=== PATIENT | female | born 1960 | race Caucasian/White ===

== ENCOUNTER → 2018-04-18 | Outpatient (CLI) | payer OTHER ==
--- NOTE | 2018-04-20 13:15 | CT ---
EXAMINATION TYPE: CT abdomen pelvis w con DATE OF EXAM: 04/18/2018 HISTORY: Left lower abdominal pain, distention and constipation. CT DLP: 1112mGycm Automated Exposure Control for Dose Reduction was Utilized. CONTRAST: CT scan of the abdomen and pelvis is performed with IV Contrast, patient injected with 100ml mL of Is ovue M300. COMPARISON: None. FINDINGS: LUNG BASES: Linear pleural parenchymal scarring is seen at the right lung base.. LIVER/GB: No significant abnormality is appreciated within the liver. On coronal imaging layering wit hin the gallbladder fundus on series 5 image 26 there is increased density that may represent artifac t as on axial images there may be volume averaging with the adjacent colon, however this could also r epresent a small gallbladder polyp or biliary sludge. Ultrasound is recommended for further character ization. This is also seen on axial series 3 image 36 and series 7 image 36 laterally. PANCREAS: No significant abnormality is seen. No ductal dilatation. SPLEEN: No significant abnormality is seen. No splenomegaly in the craniocaudal dimension. ADRENALS: No significant abnormality is seen. No nodularity or thickening. KIDNEYS: Kidneys enhance and excrete symmetrically without hydronephrosis or appreciable renal mass. BOWEL: Bowel is nondilated. No focal bowel wall thickening is appreciated. Appendix is air-filled and within normal limits. Small bowel fold pattern is unremarkable. No pericolonic fat stranding. No kennedy dence of focal stricture. No significant diverticular disease. UTERUS/ADNEXA: No gross abnormality seen. LYMPH NODES: No greater than 1cm abdominal or pelvic lymph nodes are appreciated. OSSEOUS STRUCTURES: There is grade 2 anterolisthesis of L4 on L5 secondary to bilateral pars interart icularis defects with resultant disc uncovering. Within the remainder the visualized lumbosacral spin e there are mild multilevel degenerative changes in a mild levoscoliotic curvature. Mild femoral acet abular arthropathy is also seen. IMPRESSION: 1. No evidence of bowel obstruction or active inflammation within the colon to correspond to the sanjay ent's focal left lower quadrant pain. 2. Biliary sludge versus small fundal gallbladder polyp or possible artifact. Targeted gallbladder/ri ght upper quadrant ultrasound is recommended for further evaluation. 3. Grade 2 anterolisthesis of L4 on L5 secondary to bilateral pars interarticularis defects.
== END | disposition home or self-care (01) ==
LOC: RADCTMAIN 17:16
PROVIDERS: ATTEND Family Medicine
DX: R10.32 Left lower quadrant pain (principal)
CPT/HCPCS: 74177; Q9967

== ENCOUNTER → 2018-05-13 | Outpatient (CLI) | payer OTHER ==
--- NOTE | 2018-05-13 08:20 | US ---
EXAMINATION TYPE: US gallbladder DATE OF EXAM: 05/13/2018 COMPARISON: CT 04/18/2018 CLINICAL HISTORY: 58-year-old female K82.4 Cholesterolosis Of Gallbladder. Follow up from recent CT TECHNIQUE: Multiple sonographic images of the right upper quadrant are obtained. FINDINGS: EXAM MEASUREMENTS: Liver Length: 16.6 cm Gallbladder Wall: 0.1 cm CBD: 0.5 cm Right Kidney: 9.9 x 4.2 x 5.0 cm Pancreas: visualized portions wnl, tail limited by overlying midline bowel gas Liver: Upper limits of normal in size but with homogeneous appearance and no focal lesion. Gallbladder: No abnormal distention, wall thickening, pericholecystic fluid, or shadowing calculi. Evidence for sonographic Alvarez's sign: no CBD: wnl Right Kidney: wnl IMPRESSION: Right upper quadrant ultrasound without any specific abnormality seen. Particular attention to the fu ndus of the gallbladder.
== END | disposition home or self-care (01) ==
LOC: RADUSWWP 06:54
PROVIDERS: ATTEND Family Medicine
DX: K82.4 Cholesterolosis of gallbladder (principal)
CPT/HCPCS: 76705

== ENCOUNTER → 2018-06-23 | Outpatient (CLI) | payer OTHER ==
--- NOTE | 2018-06-23 10:30 | NM ---
EXAMINATION TYPE: NM hepatobiliary w EF DATE OF EXAM: 06/23/2018 COMPARISON: NONE HISTORY: Pain TECHNIQUE: After the intravenous administration of 5.12 mCi Tc 99m Mebrofenin hepatobiliary scintigra phy is performed. Immediate images post injection. FINDINGS: There is satisfactory initial accumulation of tracer by the liver. The gallbladder is visualized wit hin 12 minutes. The small bowel activity is noted within 60 minutes. At one hour 8 ounces of oral e nsure plus is given to mimic CCK and gallbladder ejection fraction is calculated at 84 %. IMPRESSION: 1. Increased gallbladder ejection fraction which may reflect hypercontractile state.
== END | disposition home or self-care (01) ==
LOC: RADNMMAIN 07:05
PROVIDERS: ATTEND Surgery Plastic and Reconstructive Surgery
DX: K81.9 Cholecystitis, unspecified (principal); Z88.5 Allergy status to narcotic agent; Z88.6 Allergy status to analgesic agent
CPT/HCPCS: 78226; A9537

== ENCOUNTER → 2018-09-22 | Outpatient (CLI) | payer OTHER ==
--- NOTE | 2018-09-23 06:45 | US ---
EXAMINATION TYPE: US pelvis complete transvag DATE OF EXAM: 09/22/2018 COMPARISON: CT abdomen and pelvis April 18, 2018 CLINICAL HISTORY: R10.2 Pelvic Pain. TECHNIQUE: Transvaginal (TV) and Transabdominal (TA) . Transabdominal sonographic images of the pel vis were acquired. Transvaginal sonographic images were medically necessary to better assess the fol lowing anatomy: ovaries Date of LMP: postmenopausal, just had a shot of testosterone as levels are low. EXAM MEASUREMENTS: Uterus: 5.3 x 1.8 x 3.5 cm Endometrial Stripe: 0.6 cm Right Ovary: 1.8 x 1.7 x 1.2 cm Left Ovary: not identified cm 1. Uterus: Anteverted wnl 2. Endometrium: measures 0.6 cm 3. Right Ovary: wnl 4. Left Ovary: not identified 5. Bilateral Adnexa: wnl 6. Posterior cul-de-sac: no free fluid IMPRESSION: Mild thickening of endometrium consider short-term ultrasound follow-up or sampling, no s uspicious adnexal masses.
== END | disposition home or self-care (01) ==
LOC: RADUSWWP 16:16
PROVIDERS: ATTEND Family Medicine
DX: R93.89 Abnormal findings on diagnostic imaging of other specified body structures (principal)
CPT/HCPCS: 76830; 76856

== ENCOUNTER 2018-11-27 10:00 | Day surgery (SDC) | payer OTHER ==
[2018-11-25 15:13] VITALS: BMI 26.4
--- NOTE | 2018-11-27 08:30 | P.GSHP ---
History of Present Illness H&P Date: 11/27/18 CHIEF COMPLAINT: GERD HISTORY OF PRESENT ILLNESS: The patient is a 58-year-old female who presents reports gastroesophageal reflux disease. Upper endoscopy was offered for further evaluation and management. PAST MEDICAL HISTORY: Please see list. PAST SURGICAL HISTORY: Please see list. MEDICATIONS: Please see list. ALLERGIES: Please see list. SOCIAL HISTORY: No illicit drug use FAMILY HISTORY: No reports of Crohn disease or ulcerative colitis. REVIEW OF ORGAN SYSTEMS: CONSTITUTIONAL: No reports of fevers or chills. GI: Denies any blood in stools or constipation. PHYSICAL EXAM: VITAL SIGNS: Stable GENERAL: Well-developed and pleasant in no acute distress. HEENT: No scleral icterus. Extraocular movements grossly intact. Moist buccal mucosa. NECK: Supple without lymphadenopathy. CHEST: Unlabored respirations. Equal bilateral excursions. CARDIOVASCULAR: Regular rate and rhythm. Distal 2+ pulses. ABDOMEN: Soft, nondistended. MUSCULOSKELETAL: No clubbing, cyanosis, or edema. ASSESSMENT: 1. Gastroesophageal reflux disease PLAN: 1. Recommend proceeding with an upper endoscopy Past Medical History Additional Past Medical History / Comment(s): LOWER ABD. PAIN OFF AND ON SINCE LAST 2017. History of Any Multi-Drug Resistant Organisms: None Reported Past Surgical History: Tubal Ligation Additional Past Surgical History / Comment(s): COLONOSCOPY. EGD. TUBAL AGE 16 Past Anesthesia/Blood Transfusion Reactions: No Reported Reaction Smoking Status: Current every day smoker - Past Family History Brother(s) Family Medical History: Deep Vein Thrombosis (DVT) Medications and Allergies Home Medications Medication Instructions Recorded Confirmed Type No Known Home Medications 11/25/18 11/25/18 History Allergies Allergy/AdvReac Type Severity Reaction Status Date / Time aspirin AdvReac Nausea & Verified 11/25/18 15:08 Vomiting codeine AdvReac Nausea & Verified 11/25/18 15:08 Vomiting
[~2018-11-27 10:00] MED LIST: LACTATED RINGERS 1,000 ML IV SCH; LIDOCAINE 1% 20 ML VIAL (10MG/ML) FOR IV START INTRADERMA PRN; MIDAZOLAM (PF) 2 MG/2 ML VIAL IV PRN
[2018-11-27 10:45] VITALS: RESP 18; TEMP 97.2
[2018-11-27] MEDS ORDERED: LIDOCAINE 1% INJ 10MG/ML (20 ML MDV) ONE (11:44)
[2018-11-27] MEDS ORDERED: PROPOFOL 10 MG/ML 20 ML VIAL IV ONE (11:44)
--- NOTE | 2018-11-27 12:01 | P.PCN ---
Date of Procedure: 11/27/18 Description of Procedure: PREOPERATIVE DIAGNOSIS: Gastroesophageal reflux disease. Epigastric abdominal pain POSTOPERATIVE DIAGNOSIS: Gastroesophageal reflux disease. Epigastric abdominal pain Gastritis. Diaphragmatic hiatal hernia OPERATION: Esophagogastroduodenoscopy with biopsies along antrum. SURGEON: Ijeoma Covarrubias MD ANESTHESIA: MAC. INDICATIONS: The patient is a 58-year-old female who presents with a history of reflux disease. Benefits and risks of the procedure were described. Informed consent was obtained. DESCRIPTION: The patient was brought into the endoscopy suite and laid in the left lateral decubitus position. An Olympus gastroscope was passed along the posterior oropharynx down to the distal esophagus where the squamocolumnar junction was encountered at 36 cm from the incisors. The stomach was entered and no bile reflux was found. Additional findings are listed below. Biopsies with cold forceps were obtained of the antrum. The first through third portion of the duodenum was examined and unremarkable. Retroflexion of the scope confirmed Hill grade 2 lower esophageal valve. The squamocolumnar junction demonstrated LA grade A erosive esophagitis. The stomach was desufflated. The patient tolerated the procedure well. FINDINGS: Squamocolumnar junction 36 cm from the incisors. Diaphragmatic hiatus at 38 cm. Hiatal hernia, 2 cm Hill grade 2 lower esophageal valve. LA grade A erosive esophagitis. No active duodenitis. Chronic gastritis RECOMMENDATIONS: Upper endoscopy as needed. Plan - Discharge Summary Discharge Rx Participant: Yes New Discharge Prescriptions: No Action No Known Home Medications Discharge Medication List No Known Home Medications 11/25/18 [History] Follow up Appointment(s)/Referral(s): Ijeoma Covarrubias MD [STAFF PHYSICIAN] - 12/16/18 Patient Instructions/Handouts: Hiatal Hernia (DC), Gastroesophageal Reflux Disease (DC) Discharge Disposition: HOME SELF-CARE
[2018-11-27 12:23] VITALS: BP 112/70; PULSE 80
== END 2018-11-27 12:52 | disposition home or self-care (01) ==
LOC: ORWHC2ENDO 10:00
PROVIDERS: ATTEND Surgery Plastic and Reconstructive Surgery
DX: K29.50 Unspecified chronic gastritis without bleeding (principal); K21.0 Gastro-esophageal reflux disease with esophagitis; K22.10 Ulcer of esophagus without bleeding; K44.9 Diaphragmatic hernia without obstruction or gangrene; F17.210 Nicotine dependence, cigarettes, uncomplicated; Z88.6 Allergy status to analgesic agent; Z88.5 Allergy status to narcotic agent; Z98.51 Tubal ligation status
CPT/HCPCS: 88305; 43239; J2001; J2704

== ENCOUNTER → 2024-02-17 | Outpatient (CLI) | payer MEDICARE ==
--- NOTE | 2024-02-18 18:52 | MM ---
Reason for Exam: Screening (asymptomatic). Last mammogram was performed 5 year(s) and 5 month(s) ago. Patient History: Menarche at age 11. Patient has no children. Postmenopausal. Risk Values: Blanca 5 year model risk: 1.8%. NCI Lifetime model risk: 6.9%. Prior Study Comparison: No prior studies available for comparison. Tissue Density: The breasts are heterogeneously dense, which may obscure small masses. Findings: Analyzed By CAD. No significant mass, suspicious microcalcification, or other discrete abnormalities seen. Overall Assessment: Negative, BI-RAD 1 Management: Screening Mammogram of both breasts in 1 year. . Patient should continue monthly self-breast exams. A clinical breast exam by your physician is recommended on an annual basis. This exam should not preclude additional follow-up of suspicious palpable abnormalities. Note on Blanca scores and lifetime risk: 1. A Blanca score greater than 3% is considered moderate risk. If this is the case, consider specialist referral to assess eligibility for a risk reducing agent. 2. If overall lifetime risk for the development of breast cancer is 20% or higher, the patient may qualify for future screening with alternating mammogram and breast MRI. Electronically signed and approved by: Melvin Hernandez M.D. Radiologist
== END | disposition home or self-care (01) ==
LOC: RADMAMWWP 09:15
PROVIDERS: ATTEND Family Medicine
DX: Z12.31 Encounter for screening mammogram for malignant neoplasm of breast (principal); Z78.0 Asymptomatic menopausal state
CPT/HCPCS: 77063; 77067

== ENCOUNTER → 2024-09-25 | Day surgery (SDC) | payer MEDICARE ==
[2024-09-23 18:04] VITALS: BMI 21.9
[~2024-09-25] MED LIST changes: -LACTATED RINGERS 1,000 ML IV SCH; +LIDOCAINE 1% (10MG/ML) FOR IV START INTRADERMA PRN; -LIDOCAINE 1% 20 ML VIAL (10MG/ML) FOR IV START INTRADERMA PRN; +LIDOCAINE 1% INJ 10MG/ML (20 ML MDV) ONE; -MIDAZOLAM (PF) 2 MG/2 ML VIAL IV PRN; +PROPOFOL 10 MG/ML 20 ML VIAL IV ONE
[2024-09-25] MEDS: IV FLUID CONTINUATION 1,000 ML IV ONE (12:16)
[2024-09-25 12:20] VITALS: TEMP 97
[2024-09-25] MEDS: LACTATED RINGERS 1,000 ML IV SCH (12:24)
--- NOTE | 2024-09-25 13:49 | P.PCN ---
Date of Procedure: 09/25/24 Procedure(s) Performed: BRIEF HISTORY: Patient is a 64-year-old, pleasant, white female scheduled an upper endoscopy as a part of May of intermittent heartburn, excessive belching and bloating for the last few months duration. PROCEDURE PERFORMED: Esophagogastroduodenoscopy biopsy. PREOPERATIVE DIAGNOSIS: Heartburn, excessive belching and bloating a few months duration. IV sedation per anesthesia. PROCEDURE: After informed consent was obtained, the patient was brought into the endoscopy unit. IV sedation was administered by Anesthesia under continuous monitoring. Initially the Olympus GIF-140 video endoscope was inserted into the mouth. Esophagus intubated without any difficulty. It was gradually advanced into the stomach and duodenum and carefully examined. The bulb and the second part of the duodenum appeared normal. The scope at this time was withdrawn to the stomach, adequately insufflated with air, and upon careful examination, mucosa of the antrum and mid gastritis and biopsies were done from this area. Mucosa of the, body, cardia and the fundus appeared normal. The scope was then withdrawn into the esophagus. Small hiatal hernia noted. The GE junction was located at 39 cm from the incisors. The esophagus appeared normal. There were no erosions or ulcerations seen and the patient tolerated the procedure well. IMPRESSION: 1. Mild antral gastritis. 2. Small hiatal hernia. RECOMMENDATIONS: The findings of this examination were discussed with the patient as well as her family. She was advised to follow-up with the biopsy results. Use [id number] H2 blockers as needed for reflux symptoms
[2024-09-25 13:58] VITALS: RESP 16
[2024-09-25 14:30] VITALS: BP 115/68; PULSE 69
== END ==
LOC: ORWHC2ENDO 10:42
PROVIDERS: ATTEND Internal Medicine Gastroenterology
DX: K29.50 Unspecified chronic gastritis without bleeding (principal); K31.9 Disease of stomach and duodenum, unspecified; K44.9 Diaphragmatic hernia without obstruction or gangrene; K21.9 Gastro-esophageal reflux disease without esophagitis; F17.210 Nicotine dependence, cigarettes, uncomplicated; Z88.5 Allergy status to narcotic agent; Z88.6 Allergy status to analgesic agent
CPT/HCPCS: 88305; 43239; J2003; J2704